=== PATIENT | male | born 1980 | race Caucasian/White ===

== ENCOUNTER 2017-03-24 09:04 | Day surgery (SDC) | payer BC, OTHER ==
[2017-02-28 11:53] VITALS: Ht 193 cm; Wt 101.1 kg
--- NOTE | 2017-02-28 12:25 | PAT Medication Instructions ---
Service Date Feb 28, 2017. Current Home Medication List No Active Prescriptions or Reported Meds Medication Instructions For Your Scheduled Surgery No Active Prescriptions or Reported Meds-- please contact PAT department if starting any medications prior to surgery. If you have any questions please call us at [phone] or [phone] or [phone]
[2017-02-28 12:32] LABS: BASO % 0.6 %; BASO ABS # 0.05 K/uL (0-0.2); COMPLETE YES; EOS % 2.5 %; IG% 0.2 %; LYMPH % 28.2 %; LYMPH ABS # 2.41 K/uL (1.2-3.4); MEAN CELL VOLUME 89.9 fL (80-100); MEAN CORPUSCULAR HEMOGLOBIN 29.8 pg (25-34); MEAN CORPUSCULAR HGB CONC 33.1 g/dl (32-36); MEAN PLATELET VOLUME 10.4 fL (7.4-10.4); NEUT % 59.5 %; PLATELET COUNT 170 K/uL (130-400); RED BLOOD COUNT 4.67 M/uL (4.7-6.1); WHITE BLOOD COUNT 8.55 K/uL (4.8-10.8)
[2017-02-28 12:59] LABS: URINE APPEARANCE TURBID (CLEAR); URINE BILIRUBIN NEG (NEG); URINE COLOR YELLOW; URINE EPITHELIAL CELL AUTO 0-5 /lpf (0-5); URINE NITRITE NEG (NEG); URINE PH 8.5 (4.5-7.5); URINE SPECIFIC GRAVITY 1.024 (1.000-1.030); UROBILINOGEN NEG (NEG)
[2017-02-28 13:07] LABS: MANUAL MICROSCOPIC REQUIRED? NO; REVIEW REQ? NO
[2017-02-28 13:18] LABS: BUN/CREATININE RATIO 16.5 (10-20); CALCIUM 8.9 mg/dl (8.5-10.1); CREATININE 0.71 mg/dl (0.60-1.40); POTASSIUM 4.1 mmol/L (3.5-5.1)
[~2017-03-24] VITALS: Ht 193 cm; Wt 101.1 kg
[~2017-03-24 09:04] MED LIST: ATROPINE SULFATE 0.1 MG/ML 5ML SYR IV PRN; CEFAZOLIN 2000MG IV PUSH 10 ML IV SCH; EpHEDrine SULFATE INJ 50 MG/ML AMP IV PRN; FENTANYL CITRATE INJ 50 MCG/1 ML 2 ML VIAL IV PRN; LACTATED RINGER'S 1000ML 1,000 ML IV SCH
[2017-03-24 09:53] VITALS: BP 144/73; PULSE 76; TEMP 37; O2SAT 97
[2017-03-24] MEDS ORDERED: FENTANYL CITRATE INJ 50 MCG/1 ML 2 ML VIAL ONE ×2 (10:23→11:26)
[2017-03-24] MEDS ORDERED: MIDAZOLAM HCL 1 MG/ML 2ML VIAL ONE ×2 (10:23→11:26)
[2017-03-24] MEDS ORDERED: PROPOFOL IV EMULSION 10 MG/ML 20 ML VIAL IV ONE ×2 (10:23→12:01)
[2017-03-24] MEDS ORDERED: LIDOCAINE HCL 2% 2 ML VIAL (20MG/ML) ONE ×2 (10:23→12:01)
[2017-03-24] MEDS ORDERED: ONDANSETRON INJ 2 MG/ML 2 ML VIAL ONE ×2 (10:23→12:01)
--- NOTE | 2017-03-24 11:15 | History & Physical Bridge Note ---
H&P Re-Evaluation Bridge Note: I have examined the patient, reviewed the History & Physical and in the interval since the performance of the History & Physical I have noted the following changes of clinical significance: No changes noted
[2017-03-24] MEDS ORDERED: LIDOCAINE HCL 1% 20 ML VIAL ONE (11:39)
[2017-03-24] MEDS ORDERED: KETOROLAC TROMETHAMINE 30 MG/ML VIAL ONE (12:01)
[2017-03-24] MEDS ORDERED: DEXAMETHASONE SOD INJ 4 MG/ML VIAL ONE (12:01)
[2017-03-24] MEDS ORDERED: OXYC-57 PO (13:24)
--- NOTE | 2017-03-24 13:25 | Discharge Instructions ---
Discharge Instructions Date of Service Mar 24, 2017. Visit Reason for Visit: Desires Permanent Sterilization Discharge Discharge Diagnosis / Problem: elective sterlization Discharge Goals Goal(s): Therapeutic intervention Activity Recommendations Activity Limitations: per Instructions/Follow-up section Lifting Limitations: no more than 10 pounds Exercise/Sports Limitations: until after follow-up appointment May Resume Sexual Activity: when tolerated Shower/Bathe: no limitations Driving or Machine Use: resume 3 days after discharge Anesthesia . Post Anesthesia Instructions: If you have had General Anesthesia or IV Sedation: * Do not drive today. * Resume driving when surgeon permits. * Do not make important decisions or sign legal documents today. * Call surgeon for: 1. Temperature elevations greater than 101 degrees F. 2. Uncontrollable pain. 3. Excessive bleeding. 4. Persistent nausea and vomiting. 5. Medication intolerance (nausea, vomiting or rash). * For nausea and vomiting use only clear liquids such as: tea, soda, bouillon until nausea subsides, then gradually increase diet as tolerated. * If you have any concerns or questions, call your surgeon's office. If physician is unavailable and it is an emergency, call 911 or go to the nearest emergency room. . Diet Recommendations Recommended Home Diet: resume previous diet Procedures Procedures Performed: Vasectomy under anesthesia Pending Studies Studies pending at discharge: no Medical Emergencies . Who to Call and When: Medical Emergencies: If at any time you feel your situation is an emergency, please call 911 immediately. . Non-Emergent Contact Non-Emergency issues call your: Urologist Call Non-Emergent contact if: temperature is above 101.5, your pain is not controlled . . "Provider Documentation" section prepared by Anthony Parker. . [place] Drug Monitoring Program Search Results: patient reviewed within database
[2017-03-24] MEDS ORDERED: OXYCODONE/ACETAMINOPHEN 5-325 TAB PO PRN (13:30)
--- NOTE | 2017-03-24 13:36 | Anesthesiology Progress Note ---
Anesthesia Post Op Note Date & Time Mar 24, 2017 at 13:36 Vital Signs Pain Intensity: 0 Vital Signs Past 12 Hours Date Time Temp Pulse Resp B/P (MAP) Pulse Ox O2 Delivery O2 Flow Rate FiO2 03/24/17 09:53 37 76 18 144/73 (96) 97 Room Air Notes Mental Status: alert / awake / arousable, participated in evaluation Pt Amnestic to Procedure: Yes Nausea / Vomiting: adequately controlled Pain: adequately controlled Airway Patency, RR, SpO2: stable & adequate BP & HR: stable & adequate Hydration State: stable & adequate Anesthetic Complications: no major complications apparent
--- NOTE | 2017-03-24 13:55 | [facility] Operative Report ---
Operative Report Operative Date Mar 24, 2017. Pre-Operative Diagnosis Desire for sterilization Post-Operative Diagnosis Desire for sterilization Procedure(s) Performed Vasectomy under anesthesia Surgeon Dr. Anthony Parker [employer]aire[employer] Surgeon(s) None Estimated Blood Loss 5 mL Findings The right vas deferens appears normal. The left vas deferens was unidentifiable and I actually took the tail of the epididymis Specimens Frozen sections left vas #1: Right Vas Deferens Please verify that tissue is vas deferens Carried to lab by Ryan PERRIN, at 1208. Results called and reported to Dr. Parker at 1225. #2: Left Vas Deferens Please verify that tissue is vas deferens Carried to lab by Ryan PERRIN, at 1252. Results called and reported to Dr. Parker at 1310. Permanent specimens A: Left Vas Deferens Drains none Anesthesia general Complication(s) None Disposition Recovery Room / PACU Indications 36-year-old white male here for vasectomy he has had a vasectomy in the past followed by a repeat vasectomy according to the patient followed by a vas reversal is being done under anesthesia because I cannot find the left vas. Patient's said that the left side was not hooked up because it was "too short Description of Procedure After the induction of an adequate general anesthetic and appropriate timeout patient's upper abdomen genitalia scrotum were prepped with Betadine and draped in a sterile fashion. I could find the right breast by palpation which is brought up to the skin small incision was made along the median raphae the vas was grasped and pulled out of the incision it was clipped proximally distally small portion was excised and handed off the table as specimen proximal distal lumens were then coagulated any bleeding points were coagulated and the vas was placed back into the hemiscrotum. On the left side I could not feel the vas so a transverse incision within the left hemiscrotum being carried out to skin and subcutaneous tissues to the dartos to the tunica vaginalis was identified which was opened and the testicle was extruded from the wound the cord was dissected free from the surrounding tissues and I was still unable to find any mass within the cord structures. At this point I went to the tail of the epididymis and excised the portion of the tail and vas at that and then clipped it proximally and distally and burning both lumens. Both the left and right specimens were sent for frozen section both were confirmed to be cross sections of vas complete cross sections after completing this the scrotal incision was irrigated with sterile saline test was placed back in the left hemiscrotum in its correct anatomic position the scrotal incision was closed with a 2 layers of dartos layer with 2-0 running locked chromic the skin with 3-0 interrupted chromics and the incision for the right vas was closed with a single 3-0 chromic. We then washed and dried. Fluffed gauze and a scrotal support were applied. All needle sponge counts were correct in the case. Patient tolerated the procedure room in stable condition I attest to the content of the Intraoperative Record and any orders documented therein. Any exceptions are noted below.
[2017-03-24 14:10] VITALS: BP 117/64; PULSE 68; TEMP 36.7; O2SAT 100
[2017-03-24 14:40] VITALS: BP 122/69; PULSE 70; TEMP 36.7; O2SAT 98
== END 2017-03-24 14:50 | disposition home or self-care (01) ==
LOC: C.ACU 09:04
PROVIDERS: ATTEND Urology
DX: Z30.2 Encounter for sterilization (principal); F17.200 Nicotine dependence, unspecified, uncomplicated